=== PATIENT | female | born 1985 | race Caucasian/White ===

== ENCOUNTER 2020-06-14 18:58 | Emergency (ER) | payer SELFPAY ==
[2020-06-14 20:55] LABS: Absolute Lymphocytes (CBC) 1.8 K/uL (0.7-4.9); Basophils % 0.6 % (0-1.3); Hematocrit 34.7 % (36.0-45.0); Lymphocytes % 19.3 % (15.3-44.8); RBC Red Blood Cell Count 3.72 M/uL (3.86-4.86)
[2020-06-14] MEDS ORDERED: KETOROLAC 30 MG/ML INJ ONE (20:59)
[2020-06-14] MEDS ORDERED: NA CHLORIDE 0.9% 1,000 ML ONE (20:59)
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
[2020-06-14 21:15] LABS: ALT/SGPT 29 U/L (12-78); AST/SGOT 17 U/L (15-37); Albumin 3.6 g/dL (3.4-5.0); Alkaline Phosphatase 67 U/L (45-117); BUN Blood Urea Nitrogen 11 mg/dL (7-18); Bicarbonate 24 mmol/L (21-32); Bilirubin Direct < 0.1 mg/dL (0-0.2); Bilirubin Total 0.3 mg/dL (0.2-1.0); Glucose Level 89 mg/dL (74-106); Potassium 3.7 mmol/L (3.5-5.1); Protein, Total 7.4 g/dL (6.4-8.2); Sodium Level 139 mmol/L (136-145)
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
[2020-06-15 01:24] LABS: Urine Blood TRACE (NEG); Urine Glucose NEGATIVE (NEG); Urine Protein NEGATIVE (NEG)
== END 2020-06-14 22:12 | disposition home or self-care (01) ==
LOC: ER 18:58
DX: S16.1XXA Strain of muscle, fascia and tendon at neck level, initial encounter (principal); V43.52XA Car driver injured in collision with other type car in traffic accident, initial encounter; Y93.89 Activity, other specified; Y92.410 Unspecified street and highway as the place of occurrence of the external cause; M54.5 Low back pain; R10.9 Unspecified abdominal pain
CPT/HCPCS: 36415; 70450; 71260; 72125; 74177; 80048; 80076; 81003; 82565; 85025; 86850; 86900; 86901; 96361; 96374; 99284; J7030; Q9967

== ENCOUNTER 2021-03-23 15:36 | Emergency (ER) | payer BC, SELFPAY ==
--- OUTSIDE RECORDS SUMMARY | 2021-03-23 15:38 | XMS REPORT | Continuity of Care Document ---
:1985 Author Organization [facility] t Address [address] [place] [address] Care Team Providers Name Role Phone Amilcar Dudley MD Attending Clinician Doctor Unassigned, Name Attending Clinician Unavailable Clinic, Gastroenterology Attending Clinician [phone] Problems This patient has no known problems. Allergies, Adverse Reactions, Alerts This patient has no known allergies or adverse reactions. Medications This patient has no known medications. Procedures This patient has no known procedures. Encounters Start End Encounter Admission Attending Care Care Encounter Source Date/Time Date/Time Type Type Clinicians Facility Department ID 2021-02-27 2021-02-27 [facility] [id number] 16:47:28 23:59:00 Encounter Mary Amilcar Munoz [id number] [place] [id number] [place] [id number] 2021-02-27 2021-02-27 Orders Doctor MCCALLUM [id number] 00:00:00 00:00:00 Only UnassignedDUY [id number] [place] [id number] [id number] 2021-01-27 2021-01-27 Orders Doctor MCCALLUM [id number] 00:00:00 00:00:00 Only UnassignedDUY [id number] [place] [id number] [id number] 2021-01-23 2021-01-23 [facility] [id number] 00:00:00 00:00:00 Management Mary Munoz [id number] [place] [id number] [place] [id number] [facility] [address] 2021-01-12 2021-01-12 [facility], [facility] [id number] 00:00:00 00:00:00 (Out) [facility] [id number] [facility] CLINICS [id number] ology [id number] 2021-01-04 2021-01-04 Office Adum, [facility] [id number] 14:41:54 16:29:15 Visit Mary Munoz [id number] [place] [id number] [place] [id number] Results This patient has no known results.
[2021-03-23] MEDS ORDERED: TETANUS & DIPHTHERIA TOX,ADULT 0.5 ML VIAL ONE (16:19)
[2021-03-23] MEDS ORDERED: LIDOCAINE 1% MPF 5 ML VIAL ONE (16:41)
[2021-03-23] MEDS ORDERED: BUPIVACAINE 0.5% PF 10 ML VIAL ONE (16:41)
--- NOTE | 2021-03-23 17:29 | EDPHYS ---
Physician Documentation [facility] Name: Kelley Nuno Age: 35 yrs Sex: Female : 1985 Arrival Date: 03/23/2021 Time: 15:39 Bed 20 Private MD: ED Physician Raul Terry HPI: 03/23 16:10 This 35 yrs old Female presents to ER via Ambulatory with complaints of cp Finger Injury - Laceration. 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 16:10 The laceration(s) is(are) located on the dorsal aspect of middle phalanx of left ring cp finger. Onset: The symptoms/episode began/occurred just prior to arrival. Associated signs and symptoms: The patient has no apparent associated signs or symptoms. 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 - Social history:: Smoking status: . ROS: 16:15 Skin: Positive for laceration(s), of the dorsal aspect of middle phalanx of left ring cp finger. 16:15 Eyes: Negative for injury, pain, redness, and discharge. cp 16:15 Constitutional: Negative for chills, fever. 16:15 Cardiovascular: Negative for chest pain. 16:15 Respiratory: Negative for cough, shortness of breath. 16:15 Abdomen/GI: Negative for abdominal pain, nausea, vomiting, and diarrhea. 16:15 Neuro: Negative for numbness, tingling. 16:15 All other systems are negative. Exam: 16:20 Constitutional: The patient appears in no acute distress, alert, awake, non-toxic, well cp developed, well nourished. 16:20 Head/Face: Normocephalic, atraumatic. cp 16:20 Chest/axilla: Inspection: normal. 16:20 Cardiovascular: Rate: normal. 16:20 Respiratory: the patient does not display signs of respiratory distress, Respirations: normal, no use of accessory muscles. 16:20 Musculoskeletal/extremity: Perfusion: the extremity is normally perfused throughout, the left ring finger Sensation intact. Tendon exam: specific tendon testing normal through active and passive range of motion 16:20 Skin: injury, laceration(s), of the dorsal aspect of middle phalanx of left ring finger, that can be described as clean, no foreign body, linear, with mild bleeding. Vital Signs: 15:45 BP 149 / 105; Pulse 74; Resp 17; Temp 98.5(TE); Pulse Ox 100% on R/A; tw2 15:50 BP 140 / 89; Pulse 68; Resp 20; Pulse Ox 99% on R/A; kg 16:30 BP 128 / 89; Pulse 70; Resp 20 S; Pulse Ox 98% on R/A; kg 17:30 BP 131 / 91; Pulse 73; Resp 20; Pulse Ox 98% on R/A; kg Laceration: 17:26 Wound Repair of 2.5cm ( 1.0in ) subcutaneous laceration to dorsal aspect of middle cp phalanx of left ring finger. Linear shaped.. Distal neuro/vascular/tendon intact. Anesthesia: Digital block administered with 4 mls of Lido/Marcaine. Wound prep: Moderate cleansing by me, Wound irrigation by me. Skin closed with 4 5-0 Prolene using simple sutures and sterile technique. Dressed with Bacitracin. Patient tolerated well. MDM: 16:12 Patient medically screened. cp 17:00 Differential diagnosis: superficial laceration, tendon injury, vascular injury. cp 17:28 Data reviewed: vital signs, nurses notes, and as a result, I will discharge patient. 17:28 Counseling: I had a detailed discussion with the patient and/or guardian regarding: the cp historical points, exam findings, and any diagnostic results supporting the discharge/admit diagnosis, to return to the emergency department if symptoms worsen or persist or if there are any questions or concerns that arise at home. Response to treatment: the patient's symptoms have markedly improved after treatment, and as a result, I will discharge patient. 03/23 16:13 Order name: Dressing - Wound; Complete Time: 17:31 cp 03/23 16:13 Order name: Gloves, Sterile; Complete Time: 17:31 cp 03/23 16:13 Order name: Setup Suture Tray; Complete Time: 17:31 cp 03/23 17:25 Order name: Wound dressing; Complete Time: 17:31 cp 03/23 17:25 Order name: Finger Splint; Complete Time: 17:31 cp Administered Medications: 16:06 Drug: Tetanus-Diphtheria Toxoid Adult 0.5 ml {Baby Sitter: [employer]ambaash. Exp: kg 03/19/2022. Lot #: [id number]. } Route: IM; Site: right deltoid; 18:11 Follow up: Response: No adverse reaction kg 16:42 Drug: Lidocaine (1 %) 5 ml Volume: 5 ml; Route: Infiltration; kg 16:42 Drug: Marcaine (bupivacaine) (0.5 %) 5 ml Volume: 10 ml; Route: Infiltration; kg 18:10 Follow up: Response: No adverse reaction; Marked relief of symptoms kg 18:11 Follow up: Response: No adverse reaction; Marked relief of symptoms kg Disposition: 18:18 Co-signature as Attending Physician, Raul Terry MD I agree with the assessment and kdr plan of care. Disposition: 03/23/21 17:29 Discharged to Home. Impression: Laceration without foreign body of finger without damage to nail - left fourth finger. - Condition is Stable. - Discharge Instructions: Laceration Care, Adult. - Medication Reconciliation Form, Thank You Letter, Antibiotic Education, Prescription Opioid Use form. - Follow up: Private Physician; When: 7 - 10 days; Reason: Staple/Suture removal. - Problem is new. - Symptoms have improved. Signatures: Raul Terry MD MD [facility] Yahir Duvall PA PA cp Isamar Miranda RN RN tw2 Ella Ross RN RN kg Corrections: (The following items were deleted from the chart) 18:11 17:29 03/23/2021 17:29 Discharged to Home. Impression: Laceration without foreign body kg of finger without damage to nail - left fourth finger. Condition is Stable. Forms are Medication Reconciliation Form, Thank You Letter, Antibiotic Education, Prescription Opioid Use. Follow up: Private Physician; When: 7 - 10 days; Reason: Staple/Suture removal. Problem is new. Symptoms have improved. cp 18:12 18:11 03/23/2021 17:29 Discharged to Home. Impression: Laceration without foreign body kg of finger without damage to nail - left fourth finger. Condition is Stable. Discharge Instructions: Laceration Care, Adult. Forms are Medication Reconciliation Form, Thank You Letter, Antibiotic Education, Prescription Opioid Use. Follow up: Private Physician; When: 7 - 10 days; Reason: Staple/Suture removal. Problem is new. Symptoms have improved. kg
--- NOTE | 2021-03-23 17:29 | ER ---
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 it was tw2 in my back pocket and i reached for it, that's when it split me from my middle knuckle down to the tip it cut it open. she put neosporin and butterfly bandages on it. Coronavirus screen: At this time, the client does not indicate any symptoms associated with coronavirus-19. Ebola Screen: Patient denies travel to an Ebola-affected area in the 21 days before illness onset. Initial Sepsis Screen: Does the patient meet any 2 criteria? No. Patient's initial sepsis screen is negative. Does the patient have a suspected source of infection? No. Patient's initial sepsis screen is negative. Risk Assessment: Do you want to hurt yourself or someone else? Patient reports no desire to harm self or others. Onset of symptoms was March 23, 2021. 15:45 Method Of Arrival: Ambulatory tw2 15:45 Acuity: DEBRA 4 tw2 Triage Assessment: 15:48 General: Appears in no apparent distress. obese, well groomed, Behavior is anxious. tw2 Pain: Complains of pain in dorsal aspect of distal phalanx of left ring finger, dorsal aspect of middle phalanx of left ring finger and dorsal aspect of proximal phalanx of left ring finger. Musculoskeletal: Circulation, motion, and sensation intact. Injury Description: Laceration sustained to dorsal aspect of distal phalanx of left ring finger, dorsal aspect of middle phalanx of left ring finger and dorsal aspect of proximal phalanx of left ring finger. 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 - Social history:: Smoking status: . Screenin:56 Abuse screen: Denies threats or abuse. Denies injuries from another. Nutritional kg screening: No deficits noted. Tuberculosis screening: No symptoms or risk factors identified. Fall Risk None identified. No fall in past 12 months (0 pts). No secondary diagnosis (0 pts). No IV (0 pts). Ambulatory Aid- None/Bed Rest/Nurse Assist (0 pts). Gait- Normal/Bed Rest/Wheelchair (0 pts) Mental Status- Oriented to own ability (0 pts). Total Parker Fall Scale indicates No Risk (0-24 pts). Assessment: 15:54 General: Appears in no apparent distress. Behavior is calm, cooperative, appropriate kg for age. Pain: Complains of pain in dorsal aspect of distal phalanx of left ring finger, dorsal aspect of middle phalanx of left ring finger, dorsal aspect of proximal phalanx of left ring finger, palmar aspect of distal phalanx of left ring finger, palmar aspect of middle phalanx of left ring finger and palmar aspect of proximal phalanx of left ring finger Pain currently is 7 out of 10 on a pain scale. at worst was 8 out of 10 on a pain scale. level that patient reports is acceptable is 3 out of 10 on a pain scale. Quality of pain is described as aching. Pain: Pain began 1 hour ago. Neuro: No deficits noted. Cardiovascular: No deficits noted. Respiratory: No deficits noted. GI: No deficits noted. : No deficits noted. EENT: No deficits noted. Derm: No deficits noted. Musculoskeletal:. Injury Description: Laceration sustained to dorsal aspect of distal phalanx of left ring finger, dorsal aspect of middle phalanx of left ring finger, dorsal aspect of proximal phalanx of left ring finger, palmar aspect of distal phalanx of left ring finger, palmar aspect of middle phalanx of left ring finger, palmar aspect of proximal phalanx of left ring finger and left ring fingernail. Vital Signs: 15:45 BP 149 / 105; Pulse 74; Resp 17; Temp 98.5(TE); Pulse Ox 100% on R/A; tw2 15:50 BP 140 / 89; Pulse 68; Resp 20; Pulse Ox 99% on R/A; kg 16:30 BP 128 / 89; Pulse 70; Resp 20 S; Pulse Ox 98% on R/A; kg 17:30 BP 131 / 91; Pulse 73; Resp 20; Pulse Ox 98% on R/A; kg ED Course: 15:39 Patient arrived in ED. ds1 15:47 Triage completed. tw2 15:48 Arm band placed on. tw2 15:52 Ella Ross, RN is Primary Nurse. kg 15:53 Yahir Duvall PA is PHCP. cp 15:53 Raul Terry MD is Attending Physician. cp 15:57 Patient has correct armband on for positive identification. Bed in low position. Call kg light in reach. Side rails up X 1. 18:08 No provider procedures requiring assistance completed. Patient did not have IV access kg during this emergency room visit. Administered Medications: 16:06 Drug: Tetanus-Diphtheria Toxoid Adult 0.5 ml {Rn Oncology Research: [employer]. Exp: kg 03/19/2022. Lot #: [id number]. } Route: IM; Site: right deltoid; 18:11 Follow up: Response: No adverse reaction kg 16:42 Drug: Lidocaine (1 %) 5 ml Volume: 5 ml; Route: Infiltration; kg 16:42 Drug: Marcaine (bupivacaine) (0.5 %) 5 ml Volume: 10 ml; Route: Infiltration; kg 18:10 Follow up: Response: No adverse reaction; Marked relief of symptoms kg 18:11 Follow up: Response: No adverse reaction; Marked relief of symptoms kg Outcome: 17:29 Discharge ordered by MD. cp 18:09 Discharged to home ambulatory, with significant other. kg 18:09 Condition: improved 18:09 Discharge instructions given to patient, significant other, Instructed on discharge instructions, follow up and referral plans. Demonstrated understanding of instructions, follow-up care, wound care. 18:12 Patient left the ED. kg Signatures: Beatriz Alvarez ds1 Yahir Duvall PA PA cp Isamar Miranda RN RN tw2 Ella Ross RN RN kg
[2021-03-23 18:20] VITALS: TEMP 98.5
[2021-03-23 18:32] VITALS: O2SAT 98
[2021-03-23 18:37] VITALS: BP 131/91
== END 2021-03-23 18:12 | disposition home or self-care (01) ==
LOC: ER 15:36
PROC: 0JQK0ZZ Repair Left Hand Subcutaneous Tissue and Fascia, Open Approach (ICD-10-PCS; principal; 2021-03-23)
DX: S61.215A Laceration without foreign body of left ring finger without damage to nail, initial encounter (principal); W26.0XXA Contact with knife, initial encounter; Y92.89 Other specified places as the place of occurrence of the external cause; Y99.8 Other external cause status; Z23 Encounter for immunization
CPT/HCPCS: 90471; 90714; 99283